=== PATIENT | male | born 1995 ===

== ENCOUNTER 2023-03-06 13:00 | Outpatient (CLI) | payer BC, SELFPAY ==
--- NOTE | ~2023-03-06 | XR_ITS ---
Right wrist Technique: PA, oblique, lateral, and ulnar deviation views were obtained. Clinical History: Pain Findings: No acute fracture or dislocation is seen. Osseous alignment is anatomic. Joint spaces are p reserved. Soft tissues are unremarkable. Impression: Unremarkable right wrist radiographs. Reviewed, dictated and finalized at location . [employer]END[employer] Impression: Unremarkable right wrist radiographs.
== END 2023-03-06 13:01 | disposition home or self-care (01) ==
LOC: ANHIMG 13:09
PROVIDERS: PCP Family Medicine; Visit Provider Nurse Practitioner Family
DX: M25.531 Pain in right wrist (principal)
CPT/HCPCS: 73110